=== PATIENT | male | born 1990 | race Caucasian/White ===

== ENCOUNTER → 2018-12-10 | Outpatient (CLI) | payer OTHER ==
--- NOTE | 2018-12-10 13:16 | REP ---
DEEP VEIN ULTRASOUND AND RIGHT SIDED REFLUX STUDY: TECHNIQUE: Multiple ultrasonographic images of the deep venous structures of the thigh were obtained from the common femoral vein to the popliteal vein along with Doppler interrogation and color flow Doppler images. FINDINGS: There is no abnormal echogenic material seen within any of the visualized deep venous structures that would suggest acute thrombosis. Coaptation is unremarkable throughout. Doppler interrogation shows an expected response to respiratory variability and augmentation. The color flow images show what appears to be a normal vascular pattern throughout. IMPRESSION: There is no ultrasonographic evidence of deep venous thrombosis involving any of the visualized deep venous structures of the right thigh, as described above. The common femoral vein was seen with reflux the duration of which was not measured. There is no anterior accessory greater saphenous vein. The greater saphenous vein at the saphenofemoral junction was seen with reflux of 1.4 seconds duration with an AP dimension of 5.4 mm. The greater saphenous vein at the mid thigh was also seen with reflux the duration of which measured 5.8 seconds and the AP dimension of which measured 5.4 mm. The greater saphenous vein at the knee was seen with reflux, the time frame was not measured and the AP dimension of which measures 5.3 mm. No reflux was seen involving any portion of the superficial femoral vein and no reflux was seen in the popliteal vein or lesser saphenous vein the AP dimension of which measured 4.5 mm. The technologist has made note that large collateral vessels were seen arising from the greater saphenous vein at the knee level and calf varicosities were noted with significant reflux as well. Electronically Signed by Truong Hollins DO 12/10/2018 04:45 P
== END ==
LOC: M RAD 09:09
PROVIDERS: ATTEND Surgery
DX: I83.813 Varicose veins of bilateral lower extremities with pain (principal)

== ENCOUNTER → 2019-02-28 | Outpatient (CLI) | payer OTHER ==
--- NOTE | 2019-02-28 15:13 | REP ---
Clinical: Right lower extremity pain status post ablation . Technique: Driver scale and color Doppler evaluation using linear high frequency transducer. Findings: Ultrasound examination of the right lower extremity deep venous structures from the common femoral vein to the popliteal vein demonstrates normal compressibility flow and wave patterns in response to respiration and augmentation. There is no evidence for deep venous thrombosis. The greater saphenous vein appears thrombosed 2.4 cm from the origin and is consistent with prior ablation. Impression: No evidence for deep venous thrombosis. Electronically Signed by Hola Shepherd MD 02/28/2019 03:04 P
== END ==
LOC: M RAD 14:19
PROVIDERS: ATTEND Nurse Practitioner Family
DX: I83.891 Varicose veins of right lower extremity with other complications (principal)

== ENCOUNTER → 2020-06-26 | Outpatient (REF) | payer OTHER ==
[2020-06-26 10:03] LABS: SEMEN APPEARANCE OPAQUE (OPAQUE); SEMEN VISCOSITY LIQUID (LIQUID); SEMEN VOLUME 4.5 ml (2.0-5.0); WBC CONCENTRATION >1 M/ml (<=1 M/ml)
[2020-06-26 10:29] LABS: SPERM CONCENTRATION 39.1 M/ml (>=15.0)
== END ==
LOC: M LAB REF 09:35
PROVIDERS: ATTEND General Practice
DX: N46.11 Organic oligospermia (principal)

== ENCOUNTER → 2020-06-26 | Outpatient (CLI) | payer OTHER | LOC: M LAB 18:55 | PROVIDERS: ATTEND Physician Assistant | DX: R30.0 Dysuria (principal); Z20.2 Contact with and (suspected) exposure to infections with a predominantly sexual mode of transmission; N46.11 Organic oligospermia ==

== ENCOUNTER → 2020-06-27 | Outpatient (CLI) | payer OTHER ==
[2020-06-29 11:48] LABS: HEPATITIS B CORE ANTIBODY IGM NEGATIVE (NEGATIVE)
== END ==
LOC: M LAB 12:30
PROVIDERS: ATTEND Physician Assistant
DX: R30.0 Dysuria (principal); Z20.2 Contact with and (suspected) exposure to infections with a predominantly sexual mode of transmission
CPT/HCPCS: 86705; 86780; G0472

== ENCOUNTER 2020-07-16 23:21 | Emergency (ER) | payer OTHER ==
[~2020-07-16] VITALS: Ht 182.9 cm; Wt 99.2 kg
[2020-07-17] MEDS ORDERED: ACETAMINOPHEN 500 MG TAB PO ONE (00:25)
[2020-07-17] MEDS ORDERED: KETOROLAC 30 MG/ML 1ML VIAL IV ONE (00:25)
[2020-07-17] MEDS ORDERED: methylPREDNISolone 125MG 2ML VIAL IV ONE (00:25)
[2020-07-17] MEDS ORDERED: NS 1,000 ML IV ONE (00:35)
[2020-07-17 00:37] LABS: BASO # 0.1 10^3/uL (0.0-0.2); BASO % 1.2 % (0.0-1.0); EOS # 0.3 10^3/uL (0.0-0.5); HEMATOCRIT 47.2 % (42.0-52.0); HEMOGLOBIN 16.2 g/dl (13.5-17.5); LYMPH # 2.6 10^3/uL (1.5-5.0); LYMPH % 34.1 % (24.0-44.0); MEAN CORPUSCULAR HEMOGLOBIN 30.6 pg (27.0-33.0); MEAN CORPUSCULAR HGB CONC 34.3 g/dl (32.0-36.5); MEAN CORPUSCULAR VOLUME 89.1 fl (80.0-96.0); MONO # 0.7 10^3/uL (0.0-0.8); MONO % 9.1 % (2.0-8.0); NEUTROPHILS # 3.9 10^3/uL (1.5-8.5); NEUTROPHILS % 51.2 % (36.0-66.0); PLATELET COUNT, AUTOMATED 237 10^3/uL (150-450); WHITE BLOOD COUNT 7.7 10^3/uL (4.0-10.0)
[2020-07-17 00:55] LABS: ERYTHROCYTE SEDIMENTATION RATE 1 mm/hr (0-15)
[2020-07-17 01:05] LABS: C REACTIVE PROTEIN QUANTITATIV < 0.30 MG/DL (0.00-0.30); CPK CREATINE PHOSPHOKINASE 115 U/L (39-308); MAGNESIUM LEVEL 2.1 MG/DL (1.8-2.4)
[2020-07-17] MEDS ORDERED: CYCL5TAB PO (01:53)
[2020-07-17] MEDS ORDERED: PRED20TA PO (02:02)
[2020-07-17 02:15] VITALS: BP 144/81
== END 2020-07-17 02:14 | disposition home or self-care (01) ==
LOC: M ED 23:21
DX: M26.602 Left temporomandibular joint disorder, unspecified (principal)
CPT/HCPCS: 80047; 82550; 83735; 85025; 85652; 86140; 96361; 96374; 96375; 99283; J2930

== ENCOUNTER → 2020-07-19 | Outpatient (CLI) | payer OTHER ==
[~2020-07-19] MED LIST: CYCL5TAB PO; PRED20TA PO
[2020-07-19 11:27] LABS: CREATININE FOR GFR 0.99 MG/DL (0.70-1.30); GLOMERULAR FILTRATION RATE > 60.0 (>60)
== END ==
LOC: M LAB 10:40
PROVIDERS: ATTEND Physician Assistant
DX: N17.9 Acute kidney failure, unspecified (principal)

== ENCOUNTER 2020-10-24 17:16 | Emergency (ER) | payer OTHER ==
[~2020-10-24] VITALS: Ht 182.9 cm; Wt 97.2 kg
[2020-10-24 17:16] VITALS: BP 143/91
[2020-10-24 18:18] LABS: BASO # 0.1 10^3/uL (0.0-0.2); BASO % 0.9 % (0.0-1.0); EOS # 0.2 10^3/uL (0.0-0.5); EOS % 2.8 % (0.0-3.0); HEMATOCRIT 45.9 % (42.0-52.0); HEMOGLOBIN 15.6 g/dl (13.5-17.5); LYMPH # 2.2 10^3/uL (1.5-5.0); LYMPH % 29.2 % (24.0-44.0); MEAN CORPUSCULAR HEMOGLOBIN 30.2 pg (27.0-33.0); MEAN CORPUSCULAR VOLUME 88.8 fl (80.0-96.0); MONO # 0.7 10^3/uL (0.0-0.8); MONO % 9.3 % (2.0-8.0); NEUTROPHILS # 4.3 10^3/uL (1.5-8.5); NEUTROPHILS % 57.3 % (36.0-66.0); PLATELET COUNT, AUTOMATED 263 10^3/uL (150-450); RED BLOOD COUNT 5.17 10^6/uL (4.30-6.10); WHITE BLOOD COUNT 7.5 10^3/uL (4.0-10.0)
[2020-10-24 18:41] LABS: ALBUMIN 4.2 GM/DL (3.2-5.2); ALT/SGPT 48 U/L (12-78); BILIRUBIN,DIRECT < 0.1 MG/DL (0.0-0.2); BILIRUBIN,TOTAL 0.5 MG/DL (0.2-1.0); BLOOD UREA NITROGEN 14 MG/DL (7-18); CALCIUM LEVEL 8.7 MG/DL (8.5-10.1); CARBON DIOXIDE LEVEL 30 MEQ/L (21-32); CHLORIDE LEVEL 106 MEQ/L (98-107); CREATININE FOR GFR 1.13 MG/DL (0.70-1.30); GLOMERULAR FILTRATION RATE > 60.0 (>60); GLUCOSE, FASTING 91 MG/DL (70-100); LIPASE 115 U/L (73-393); SODIUM LEVEL 141 MEQ/L (136-145); TOTAL PROTEIN 7.4 GM/DL (6.4-8.2)
[2020-10-24] MEDS ORDERED: diazePAM 10MG/2ML SYRINGE (J3360 PER 5MG) IV ONE ×2 (19:55→21:05)
[2020-10-24] MEDS ORDERED: KETOROLAC 30 MG/ML 1ML VIAL IV ONE (19:55)
[2020-10-24] MEDS ORDERED: LIDOCAINE 5% (LIDODERM) PATCH TD ONE (19:55)
[2020-10-24] MEDS ORDERED: ISOVUE-370 76% 100ML VIAL As Ordered ONE (19:58)
--- NOTE | 2020-10-24 20:34 | REPVR ---
PROCEDURE INFORMATION: Exam: CTA Chest With Contrast Exam date and time: 10/24/2020 8:18 PM Age: 30 years old Clinical indication: Pain; On breathing; Additional info: Mid back pain, no igor, pain deep breath TECHNIQUE: Imaging protocol: Computed tomographic angiography of the chest with contrast. 3D rendering (Not supervised by radiologist): MIP and/or 3D reconstructed images were created by the technologist. Radiation optimization: All CT scans at this facility use at least one of these dose optimization techniques: automated exposure control; mA and/or kV adjustment per patient size (includes targeted exams where dose is matched to clinical indication); or iterative reconstruction. Contrast material: ISOVUE 370; Contrast volume: 75 ml; Contrast route: INTRAVENOUS (IV); COMPARISON: No relevant prior studies available. FINDINGS: Pulmonary arteries: Normal. No pulmonary emboli. Aorta: There is mild fusiform dilatation of the ascending thoracic aorta which measures 3.6 cm. maximally. There is no dissection or saccular component. There is no aortic dissection or aneurysm. Lungs: Unremarkable. No consolidation. No masses. Pleural spaces: Unremarkable. No pneumothorax. No pleural effusion. Heart: Unremarkable. No cardiomegaly. No pericardial effusion. Lymph nodes: Unremarkable. No enlarged lymph nodes. Bones/joints: Unremarkable. No acute fracture. Soft tissues: Unremarkable. IMPRESSION: 1. There is mild fusiform dilatation of the ascending thoracic aorta which measures 3.6 cm. maximally. There is no dissection or saccular component. 2. There is no aortic dissection or aneurysm. 3. No acute pulmonary parenchymal findings. Electronically signed by: Jerry Cordero On 10/24/2020 20:33:39 PM
[2020-10-24 20:47] LABS: CK-MB VALUE MASS < 1.0 NG/ML (<3.6); CPK CREATINE PHOSPHOKINASE 104 U/L (39-308); MB/CK RELATIVE INDEX 0.96 (< OR =4); TROPONIN I < 0.02 NG/ML (< 0.10)
[2020-10-24] MEDS ORDERED: **NOTE PATIENT COMMENT** MISC XX SCH (21:00)
[2020-10-24] MEDS ORDERED: ASPE4PAD TOP (22:12)
[2020-10-24] MEDS ORDERED: METH-1165 PO (22:12)
[2020-10-24] MEDS ORDERED: NAPR-837 PO (22:12)
--- NOTE | 2020-10-27 10:21 | ED PDOC ---
Post-Departure Follow-Up radiology report faxed to [facility] Medina Hearn MD Oct 27, 2020 10:21
== END 2020-10-24 22:29 | disposition home or self-care (01) ==
LOC: M ED 17:16
DX: M54.6 Pain in thoracic spine (principal); I77.810 Thoracic aortic ectasia
CPT/HCPCS: 71275; 80048; 80076; 81001; 82550; 82553; 83690; 84484; 85025; 96374; 96375; 99283; J1885; J3360; Q9967

== ENCOUNTER 2020-11-03 09:59 | Emergency (ER) | payer OTHER ==
[~2020-11-03] VITALS: Ht 182.9 cm; Wt 98.4 kg
[~2020-11-03 09:59] MED LIST changes: +ASPE4PAD TOP; +METH-1165 PO; +NAPR-837 PO
[2020-11-03 10:00] VITALS: BP 139/79
--- NOTE | 2020-11-03 11:08 | REP ---
INDICATION: trauma COMPARISON: None. TECHNIQUE: AP, lateral, bilateral oblique views right hand. FINDINGS: The osseous structures and joint spaces are intact and normal. There is no evidence for acute fracture or dislocation. Surrounding soft tissues are unremarkable. No subcutaneous emphysema or radiodense foreign body. IMPRESSION: . No acute fracture or dislocation. <Electronically signed by Hola Shepherd > 11/03/20 1100
== END 2020-11-03 13:01 | disposition home or self-care (01) ==
LOC: M ED 09:59
DX: S60.051A Contusion of right little finger without damage to nail, initial encounter (principal); W23.0XXA Caught, crushed, jammed, or pinched between moving objects, initial encounter; Y92.89 Other specified places as the place of occurrence of the external cause; Y93.89 Activity, other specified; Y99.8 Other external cause status